=== PATIENT | female | born 1960 | race Caucasian/White ===

== ENCOUNTER → 2023-07-22 11:01 | Outpatient (CLI) | payer OTHER, SELFPAY ==
--- NOTE | 2023-07-22 | DI.MRI.S_ITS ---
PROCEDURE: MR KNEE RT WO CON INDICATIONS: Pain in right knee TECHNIQUE: Noncontrast sagittal PD fast spin echo and T2 fast spin echo with fat saturation, sagittal 3-D FLASH with fat saturation; coronal T1 spin echo and PD fast spin echo with fat saturation, and axial PD fast spin echo with fat saturation through the knee. COMPARISON: None. FINDINGS: Image quality: Excellent. Menisci: Complex oblique tear involving anterior horn of lateral meniscus extending to both superior and inferior articulating surface is seen. Oblique tear involving posterior horn of lateral meniscus extending to inferior articulating surface is also seen. The medial meniscus is intact. The meniscal root ligaments appear intact. Cruciate ligaments: The anterior cruciate ligament is thickened with intrasubstance T2 hyperintense signal. The posterior cruciate ligament is intact. Medial structures: The medial collateral ligament appears mildly thickened. Visualized portions of the pes anserinus tendons appear normal. No abnormal bursal fluid. Lateral structures: The lateral collateral ligament, long and short heads of the biceps femoris tendon appear thickened The popliteus tendon appears thickened with intrasubstance T2 hyperintense signal extending to musculotendinous junction. Iliotibial band appears normal. Anterior structures: Distal quadriceps tendinosis at its superior patellar insertion is seen. The patellar tendon is intact. Nonspecific mild soft tissue edema along anterior aspect of patella and patella tendon is seen.. Patellar alignment is normal. No femoral trochlear dysplasia or ventral trochlear prominence. No edema in the infrapatellar fat pad. Bones and cartilage: Moderate tricompartmental osteoarthritis and chondromalacia is seen most notably involving lateral femoral tibial compartment and lateral portion of patellofemoral compartment. Joint space: There is moderate to large knee joint fluid. No gross loose bodies. No Kumar's cyst. Normal appearing synovial plicae are incidentally noted. IMPRESSION: 1. Complex oblique tear involving anterior horn of lateral meniscus extending to both superior and inferior articulating surfaces. Oblique tear involving posterior horn of lateral meniscus extending to inferior articulating surface. The medial meniscus is intact. 2. Sprain/low-grade intrasubstance partial-thickness tear involving anterior cruciate ligament. No ACL rupture. The PCL is intact. 3. Low-grade MCL sprain. Low to moderate grade proximal LCL sprain/partial-thickness tear. Low-grade biceps femorals tendinosis . Low to moderate grade partial-thickness tear involving popliteus tendon extending to musculotendinous junction. 4. Distal quadriceps tendinosis. 5. Moderate tricompartmental osteoarthritis and chondromalacia as above. No fracture or dislocation. Moderate to large joint effusion, no gross loose bodies. Dictated by: Jose Welch M.D. on 07/24/2023 at 11:44 Approved by: Jose Welch M.D. on 07/24/2023 at 11:47
== END ==
PROVIDERS: PCP Family Medicine; Referring Provider Physician Assistant; Visit Provider Physician Assistant
DX: S83.271A Complex tear of lateral meniscus, current injury, right knee, initial encounter (principal); S83.511A Sprain of anterior cruciate ligament of right knee, initial encounter; S83.411A Sprain of medial collateral ligament of right knee, initial encounter; S83.421A Sprain of lateral collateral ligament of right knee, initial encounter; M17.11 Unilateral primary osteoarthritis, right knee; M94.261 Chondromalacia, right knee; M25.461 Effusion, right knee; M25.561 Pain in right knee
CPT/HCPCS: 73721